=== PATIENT | male | born 1985 | race Caucasian/White ===

== ENCOUNTER → 2019-02-25 | Outpatient (CLI) | payer BC | LOC: COL.RAD 14:44 | DX: R10.84 Generalized abdominal pain (principal); R63.4 Abnormal weight loss | CPT/HCPCS: Q9967 ==

== ENCOUNTER → 2019-05-01 | Outpatient (CLI) | payer BC | LOC: COL.RAD 04-26 09:45 | DX: R63.4 Abnormal weight loss (principal); R10.9 Unspecified abdominal pain; R11.0 Nausea | CPT/HCPCS: A9537; J2805 ==

== ENCOUNTER → 2020-01-13 | Outpatient (CLI) | payer BC | LOC: ZCOL.LAB 15:50 | DX: Z20.828 Contact with and (suspected) exposure to other viral communicable diseases (principal) ==

== ENCOUNTER 2020-06-14 14:17 | Emergency (ER) | payer OTHER ==
[~2020-06-14] VITALS: Ht 172.7 cm; Wt 68.2 kg
[2020-06-14 14:28] VITALS: TEMP 98
[2020-06-14] MEDS ORDERED: INFANTS AQU400 IU/ML PO (15:45)
[2020-06-14] MEDS ORDERED: VITAMINC1000TA PO (15:45)
[2020-06-14] MEDS ORDERED: VIVLODEX5 MG PO (15:46)
[2020-06-14 17:58] VITALS: BP 129/77; PULSE 85
[2020-06-16] MEDS ORDERED: NORCO 325 MG-51 TAB PO (18:47)
== END 2020-06-14 17:58 | disposition home or self-care (01) ==
LOC: COL.ER 14:17
DX: S20.20XA Contusion of thorax, unspecified, initial encounter (principal); Z88.2 Allergy status to sulfonamides; W50.0XXA Accidental hit or strike by another person, initial encounter; Y93.66 Activity, soccer

== ENCOUNTER 2020-07-12 15:45 | Emergency (ER) | payer OTHER ==
[~2020-07-12] VITALS: Ht 172.7 cm; Wt 68.2 kg
[~2020-07-12 15:45] MED LIST: INFANTS AQU400 IU/ML PO; NORCO 325 MG-51 TAB PO; VITAMINC1000TA PO; VIVLODEX5 MG PO
[2020-07-12 15:54] VITALS: TEMP 97.7
[2020-07-12] MEDS ORDERED: VITAMIN C500 MG PO (16:24)
[2020-07-12] MEDS ORDERED: ULTRAM 50MG TAB50 MG PO (16:24)
[2020-07-12] MEDS ORDERED: ROBAXIN 50500 MG/TAB PO (16:24)
[2020-07-12] MEDS ORDERED: VITAMIN D31000 I1 PO (16:24)
[2020-07-12 16:52] VITALS: BP 128/79; PULSE 64
== END 2020-07-12 16:52 | disposition home or self-care (01) ==
LOC: COL.ER 15:45
DX: S93.401A Sprain of unspecified ligament of right ankle, initial encounter (principal); Z88.2 Allergy status to sulfonamides; X50.9XXA Other and unspecified overexertion or strenuous movements or postures, initial encounter; Y93.66 Activity, soccer
CPT/HCPCS: 31865; L4386